=== PATIENT | male | born 1980 | race Two or more races ===

== ENCOUNTER 2018-12-02 03:22 | Emergency (ER) | payer SELFPAY ==
[~2018-12-02] VITALS: Ht 180.3 cm; Wt 75.0 kg
[2018-12-02 04:45] VITALS: BP 129/78
== END 2018-12-02 05:12 | disposition home or self-care (01) ==
LOC: EMS 03:25
DX: T40.1X1A Poisoning by heroin, accidental (unintentional), initial encounter (principal); F19.10 Other psychoactive substance abuse, uncomplicated; J45.909 Unspecified asthma, uncomplicated; F17.210 Nicotine dependence, cigarettes, uncomplicated; F19.90 Other psychoactive substance use, unspecified, uncomplicated; Y92.89 Other specified places as the place of occurrence of the external cause